=== PATIENT | male | born 1960 | race Caucasian/White ===

== ENCOUNTER → 2020-08-29 | Outpatient (CLI) | payer OTHER | LOC: ZCOL.LAB 13:56 | DX: Z01.818 Encounter for other preprocedural examination (principal); Z20.828 Contact with and (suspected) exposure to other viral communicable diseases ==

== ENCOUNTER → 2020-09-26 | Outpatient (CLI) | payer OTHER | LOC: ZCOL.LAB 20:30 | DX: Z01.818 Encounter for other preprocedural examination (principal) ==